=== PATIENT | female | born 1985 | race African-American/Black ===

== ENCOUNTER 2016-10-14 08:01 | Emergency (ER) | payer OTHER ==
[~2016-10-14 08:01] MED LIST: ACET50TA PO; DIBU1OIN TOP; DOCU10CA PO; IBUP80TA PO; VITAPRTA PO
[2016-10-14] MEDS ORDERED: ONDANSETRON 4MG/2ML VIAL (J2405) As Ordered ONE (08:32)
[2016-10-14] MEDS ORDERED: KETOROLAC 30 MG/ML VIAL (J1885) As Ordered ONE (08:32)
[2016-10-14 09:04] LABS: BASO % 0.4 % (0.0-1.0); EOS # 0.4 K/mm3 (0.0-0.50); EOS % 7.1 % (0.0-3.0); LARGE UNSTAINED CELL # 0.1 K/mm3 (0.0-0.4); LARGE UNSTAINED CELL % 2.4 % (0.0-4.0); LYMPH # 1.3 K/mm3 (1.5-4.5); LYMPH % 24.2 % (24.0-44.0); MONO # 0.2 K/mm3 (0.0-0.8); MONO % 4.4 % (0.0-5.0); NEUTROPHILS # 3.4 K/mm3 (1.8-7.7); NEUTROPHILS % 61.5 % (36.0-66.0); PLATELET COUNT, AUTOMATED 225 k/mm3 (150-450); RED CELL DISTRIBUTION WIDTH 12.4 % (11.5-14.5); WHITE BLOOD COUNT 5.5 K/mm3 (4.0-10.0)
--- NOTE | 2016-10-14 09:22 | REP ---
Complete abdomen ultrasound: There is no cholelithiasis, gallbladder wall thickening or pericholecystic fluid. There is a negative Del Castillo's sign to transducer pressure. There is no intrahepatic or extrahepatic biliary duct dilatation, the common duct measures 3.6 mm. The hepatic parenchyma is homogeneous. The visualized portion of the pancreatic head is unremarkable. The body and tail of the pancreas are obscured by bowel. The spleen is normal size measuring 9.9 x 3.4 by 10.3 cm. There are are no focal splenic masses. The spleen is homogeneous. The kidneys are normal size. The right kidney measures 10.1 x 4.5 x 4.3 cm. Left kidney measures 10.7 x 5.1 x 5.0 cm. No hydronephrosis, calculus, mass or cyst in the right and left kidneys. There is no abdominal aortic aneurysm. No ascites. Impression: Essentially negative total abdominal ultrasound. Signed by Denny Owen MD 10/14/2016 09:14 A
[2016-10-14 09:23] LABS: ALBUMIN 3.9 GM/DL (3.2-5.2); ALBUMIN/GLOBULIN RATIO 1.03 (1.00-1.93); ALKALINE PHOSPHATASE 67 U/L (45-117); ALT/SGPT 20 U/L (12-78); AMYLASE 91 U/L (25-115); ANION GAP 6 MEQ/L (8-16); AST/SGOT 14 U/L (15-37); BILIRUBIN,DIRECT 0.2 MG/DL (0.0-0.2); BILIRUBIN,TOTAL 0.9 MG/DL (0.2-1.0); BLOOD UREA NITROGEN 10 MG/DL (7-18); CALCIUM LEVEL 8.8 MG/DL (8.5-10.1); CARBON DIOXIDE LEVEL 26 MEQ/L (21-32); CHLORIDE LEVEL 107 MEQ/L (98-107); GLOMERULAR FILTRATION RATE > 60.0 (>60); GLUCOSE, FASTING 76 MG/DL (70-105); POTASSIUM SERUM 3.9 MEQ/L (3.5-5.1); SODIUM LEVEL 139 MEQ/L (136-145); TOTAL PROTEIN 7.7 GM/DL (6.4-8.2)
--- NOTE | 2016-10-14 10:07 | EDDOCDS ---
Nurse's Notes [facility] Name: Julita Ramesh Age: 31 yrs Sex: Female : 1985 Arrival Date: 10/14/2016 Time: 08:01 Bed I3 / M3 Private MD: Diagnosis: Nausea with vomiting, unspecified;Diarrhea, unspecified;Upper abdominal pain, unspecified-epigastric, LUQ Presentation: 10/14 08:11 Presenting complaint: Patient states: Abdominal cramping with N/V/D began last night. mlb1 Risk factors: the patient reports no vaginal bleeding. Adult Sepsis Screening: The patient does not have new or worsening altered mentation. Patient's respiratory rate is less than 22. Systolic blood pressure is greater than 100. Patient has a qSOFA score of 0- Negative Sepsis Screen. Suicide/Homicide risk assessment- the patient denies having any suicidal and/or homicidal ideations and does not present with any other emotional, behavioral or mental health complaints. Status: The patient is a dependent. Transition of care: patient was not received from another setting of care. 08:11 Acuity: LORA Level 3 mlb1 08:11 Method Of Arrival: Walkin/Carried/Asstd mlb1 Triage Assessment: 08:13 General: Appears in no apparent distress, Behavior is appropriate for age, cooperative. mlb1 Pain: Location: abdomen Pain currently is 6 out of 10 on a pain scale. Quality of pain is described as crampy. HIV screening NA for this visit Offered previously. GI: Reports diarrhea, nausea, vomiting. 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 Mirena 20 mcg/24 hr (5 years) intrauterine IUD 2. ProAir HFA 90 mcg/actuation inhalation HFAA 2 puffs every 4-6 hours prn - PMHx: Asthma; - PSHx: Bunion Surgery; - Social history: Smoking status: Patient states was never smoker of tobacco. No barriers to communication noted, The patient speaks fluent Swedish, Speaks appropriately for age. - Family history: Not pertinent. - : The pt / caregiver states he / she is not on anticoagulants. Home medication list is obtained from the patient. - Exposure Risk Screening:: None identified. Screenin:13 Screening information is obtained from the patient. Fall risk: No risks identified. ja5 Assistance ADL's: requires no assistance with activities of daily living. Abuse/DV Screen: The patient / caregiver reports he/she is: not in a situation that causes fear, pain or injury. Nutritional screening: On no prescribed diet. Advance Directives: Currently, there is no health care proxy. There is no active DNR order. There is no living will. There is no Power of Generator Technician. home support is adequate. Assessment: 09:11 General: Appears in no apparent distress, Behavior is appropriate for age, cooperative. ja5 Pain: Denies pain. Neurological: Level of Consciousness is awake, alert, Oriented to person, place. Cardiovascular: Capillary refill < 3 seconds Heart tones S1 S2 present. Respiratory: Airway is patent Respiratory effort is even, unlabored, Respiratory pattern is regular, symmetrical, Breath sounds are clear bilaterally. GI: Abdomen is flat, non- distended Bowel sounds present X 4 quads. Abd is soft X 4 quads Abd is tender to palpation in right lower quadrant. Derm: Skin is intact, is healthy with good turgor, Skin is pink, warm & dry. 09:37 Adult Sepsis Screening: The patient does not have new or worsening altered mentation. dsf Patient's respiratory rate is less than 22. Systolic blood pressure is greater than 100. Patient has a qSOFA score of 0- Negative Sepsis Screen. General: Appears in no apparent distress, Behavior is appropriate for age, cooperative. Pain: Location: abdomen Pain currently is 3 out of 10 on a pain scale. Quality of pain is described as crampy. Neurological: Level of Consciousness is awake, alert. Cardiovascular: Capillary refill < 3 seconds. Respiratory: Airway is patent Respiratory effort is even, unlabored, Respiratory pattern is regular, symmetrical. Derm: Skin is pink, warm & dry. 09:48 General: pt drinking maynor brandon without difficulty . dsf Vital Signs: 08:14 BP 137 / 93; Pulse 74; Resp 16; Temp 100.0(TE); Pulse Ox 100% on R/A; Weight 86.18 kg mlb1 (R); Height 5 ft. 8 in. (172.72 cm) (R); Pain 6/10; 09:37 Temp 98.6(O); Pain 2/10; dsf 10:05 BP 131 / 80; Pulse 70; Resp 20; Pulse Ox 100% on R/A; Pain 3/10; dsf 08:14 Body Mass Index 28.89 (86.18 kg, 172.72 cm) [facility] Vitals: 08:14 Log In Time: October 14, 2016 at 07:58. b1 ED Course: 08:02 Patient visited by Mallory Sheffield. mm15 08:02 Patient moved to Waiting mm15 08:11 Patient visited by Guero Todd, MIMI. mlb1 08:12 Triage Initiated mlb1 08:14 Patient visited by Guero Todd, MIMI. mlb1 08:15 Ivana Reese, MIMI is Primary Nurse. mlb1 08:15 Irena Richardson,MIMI is Primary Nurse. mlb1 08:15 Patient moved to I3 / M3 mlb1 08:16 [facility]. dt4 08:16 Hilario Bueno MD is Attending Physician. dt4 08:16 Patient visited by Eden Lazaro PA-C. dt4 08:39 Patient visited by Celeste Regan PCA. ct3 08:39 Urinalysis Sent. ct3 08:39 Urine Culture Sent. ct3 08:41 Patient moved to Ultrasound br3 08:44 Inserted saline lock: 20 gauge in left antecubital area. ja5 09:06 Patient moved to I3 / M3 br3 09:11 Patient visited by Irena Richardson RN. ja5 09:40 [facility] Payment Agreement was scanned into [employer] and attached to record. lg 09:41 Patient visited by Olivia Jeffries RN. dsf 09:48 Abd US complete Returned. EDMS 09:49 Patient visited by Olivia Jeffries RN. dsf 10:05 The patient / caregiver is instructed regarding the plan of care and ED course. dsf 10:05 Discontinued lock intact, bleeding controlled, pressure dressing applied, No dsf redness/swelling at site. No procedures done that require assistance. Administered Medications: 08:41 Drug: Ondansetron 4 mg [ondansetron HCl 2 mg/mL intravenous solution (2 mL)] Route: jc4 IVP; Site: right antecubital; 08:43 Drug: NS 0.9% 1000 ml [sodium chloride 0.9 % intravenous solution] Route: IV; Rate: jc4 bolus; Site: left antecubital; 10:06 Follow up: IV Status: Infusion discontinued; IV Intake: 950ml dsf 08:44 Drug: ketorolac 30 mg [ketorolac 30 mg/mL (1 mL) injection solution (1 mL)] Route: IVP; jc4 Site: left antecubital; Point of Care Testing: Urine : 08:39 hCG Reading: Negative; Control Reading: Positive; ct3 Ranges: Intake: 10:06 IV: 950.00ml; Total: 950.00ml. dsf Order Results: Lab Order: Amylase; SPEC'M 10/14/16 08:41 Test: AMYLASE; Value: 91; Range: 25-115; Units: U/L; Status: F Lab Order: Basic Metabolic Profile; SPEC'M 10/14/16 08:41 Test: GLUCOSE, FASTING; Value: 76; Range: 70-105; Units: MG/DL; Status: F Test: BLOOD UREA NITROGEN; Value: 10; Range: 7-18; Units: MG/DL; Status: F Test: CREATININE FOR GFR; Value: 0.90; Range: 0.55-1.02; Units: MG/DL; Status: F Test: GLOMERULAR FILTRATION RATE; Value: > 60.0; Range: >60; Status: F Test: SODIUM LEVEL; Value: 139; Range: 136-145; Units: MEQ/L; Status: F Test: POTASSIUM SERUM; Value: 3.9; Range: 3.5-5.1; Units: MEQ/L; Status: F Test: CHLORIDE LEVEL; Value: 107; Range: 98-107; Units: MEQ/L; Status: F Test: CARBON DIOXIDE LEVEL; Value: 26; Range: 21-32; Units: MEQ/L; Status: F Test: ANION GAP; Value: 6; Range: 8-16; Abnormal: Below low normal; Units: MEQ/L; Status: F Test: CALCIUM LEVEL; Value: 8.8; Range: 8.5-10.1; Units: MG/DL; Status: F Test Note: ; Units are mL/min/1.73 m2 Chronic Kidney Disease Staging per NKF: Stage I & II GFR >=60 Normal to Mildly Decreased Stage III GFR 30-59 Moderately Decreased Stage IV GFR 15-29 Severely Decreased Stage V GFR <15 Very Little GFR Left ESRD GFR <15 on [employer] Lab Order: CBC with Diff; SPEC'M 10/14/16 08:41 Test: WHITE BLOOD COUNT; Value: 5.5; Range: 4.0-10.0; Units: K/mm3; Status: F Test: RED BLOOD COUNT; Value: 4.91; Range: 4.00-5.40; Units: M/mm3; Status: F Test: HEMOGLOBIN; Value: 13.8; Range: 12.0-16.0; Units: g/dl; Status: F Test: HEMATOCRIT; Value: 41.8; Range: 36.0-47.0; Units: %; Status: F Test: MEAN CORPUSCULAR VOLUME; Value: 85.0; Range: 80.0-96.0; Units: fl; Status: F Test: MEAN CORPUSCULAR HEMOGLOBIN; Value: 28.0; Range: 27.0-33.0; Units: pg; Status: F Test: MEAN CORPUSCULAR HGB CONC; Value: 33.0; Range: 32.0-36.5; Units: g/dl; Status: F Test: RED CELL DISTRIBUTION WIDTH; Value: 12.4; Range: 11.5-14.5; Units: %; Status: F Test: PLATELET COUNT, AUTOMATED; Value: 225; Range: 150-450; Units: k/mm3; Status: F Test: NEUTROPHILS %; Value: 61.5; Range: 36.0-66.0; Units: %; Status: F Test: LYMPH %; Value: 24.2; Range: 24.0-44.0; Units: %; Status: F Test: MONO %; Value: 4.4; Range: 0.0-5.0; Units: %; Status: F Test: EOS %; Value: 7.1; Range: 0.0-3.0; Abnormal: Above high normal; Units: %; Status: F Test: BASO %; Value: 0.4; Range: 0.0-1.0; Units: %; Status: F Test: LARGE UNSTAINED CELL %; Value: 2.4; Range: 0.0-4.0; Units: %; Status: F Test: NEUTROPHILS #; Value: 3.4; Range: 1.8-7.7; Units: K/mm3; Status: F Test: LYMPH #; Value: 1.3; Range: 1.5-4.5; Abnormal: Below low normal; Units: K/mm3; Status: F Test: MONO #; Value: 0.2; Range: 0.0-0.8; Units: K/mm3; Status: F Test: EOS #; Value: 0.4; Range: 0.0-0.50; Units: K/mm3; Status: F Test: BASO #; Value: 0.0; Range: 0.0-0.2; Units: K/mm3; Status: F Test: LARGE UNSTAINED CELL #; Value: 0.1; Range: 0.0-0.4; Units: K/mm3; Status: F Lab Order: Lipase; [facility] 10/14/16 08:41 Test: LIPASE; Value: 210; Range: 73-393; Units: U/L; Status: F Lab Order: Liver Profile; [facility] 10/14/16 08:41 Test: AST/SGOT; Value: 14; Range: 15-37; Abnormal: Below low normal; Units: U/L; Status: F Test: ALT/SGPT; Value: 20; Range: 12-78; Units: U/L; Status: F Test: ALKALINE PHOSPHATASE; Value: 67; Range: 45-117; Units: U/L; Status: F Test: BILIRUBIN,TOTAL; Value: 0.9; Range: 0.2-1.0; Units: MG/DL; Status: F Test: BILIRUBIN,DIRECT; Value: 0.2; Range: 0.0-0.2; Units: MG/DL; Status: F Test: TOTAL PROTEIN; Value: 7.7; Range: 6.4-8.2; Units: GM/DL; Status: F Test: ALBUMIN; Value: 3.9; Range: 3.2-5.2; Units: GM/DL; Status: F Test: ALBUMIN/GLOBULIN RATIO; Value: 1.03; Range: 1.00-1.93; Status: F Lab Order: Urinalysis; [facility] 10/14/16 08:31 Test: APPEARANCE, URINE; Value: CLEAR; Range: CLEAR; Status: F Test: COLOR, URINE; Value: YELLOW; Range: YELLOW; Status: F Test: PH,URINE; Value: 5.0; Range: 5.0-9.0; Units: UNITS; Status: F Test: SPECIFIC GRAVITY URINE AUTO; Value: 1.014; Range: 1.002-1.035; Status: F Test: PROTEIN, URINE AUTO; Value: NEGATIVE; Range: NEGATIVE; Units: mg/dL; Status: F Test: GLUCOSE, URINE (UA) AUTO; Value: NEGATIVE; Range: NEGATIVE; Units: mg/dL; Status: F Test: KETONE, URINE AUTO; Value: NEGATIVE; Range: NEGATIVE; Units: mg/dL; Status: F Test: UROBILINOGEN, URINE AUTO; Value: 0.2; Range: 0.0-2.0; Units: mg/dL; Status: F Test: BILIRUBIN, URINE AUTO; Value: NEGATIVE; Range: NEGATIVE; Status: F Test: NITRITE, URINE AUTO; Value: NEGATIVE; Range: NEGATIVE; Status: F Test: LEUKOCYTE ESTERASE, URINE AUTO; Value: NEGATIVE; Range: NEGATIVE; Status: F Test: BLOOD, URINE BLOOD; Value: NEGATIVE; Range: NEGATIVE; Status: F Test: WBC, URINE AUTO; Value: 1; Range: 0-3; Units: /HPF; Status: F Test: RBC, URINE AUTO; Value: 1; Range: 0-3; Units: /HPF; Status: F Test: BACTERIA, URINE AUTO; Value: NEGATIVE; Range: NEGATIVE; Status: F Test: SQUAMOUS EPITHELIAL CELL UR AU; Value: 1; Range: 0-6; Units: /HPF; Status: F Test: HYALINE CAST, URINE AUTO; Value: 0; Range: 0-1; Units: /LPF; Status: F Radiology Order: Abd US complete Test: Abd US complete REASON FOR EXAMINATION: luq pain, n/v, ?pancreas vs GB; Complete abdomen ultrasound:; ; There is no cholelithiasis, gallbladder wall thickening or pericholecystic fluid.; There is a negative Del Castillo's sign to transducer pressure.; ; There is no intrahepatic or extrahepatic biliary duct dilatation, the common duct; measures 3.6 mm.; ; The hepatic parenchyma is homogeneous.; ; The visualized portion of the pancreatic head is unremarkable. The body and tail; of the pancreas are obscured by bowel.; ; The spleen is normal size measuring 9.9 x 3.4 by 10.3 cm. There are are no focal; splenic masses. The spleen is homogeneous.; ; The kidneys are normal size.; The right kidney measures 10.1 x 4.5 x 4.3 cm.; Left kidney measures 10.7 x 5.1 x 5.0 cm.; ; No hydronephrosis, calculus, mass or cyst in the right and left kidneys.; ; There is no abdominal aortic aneurysm.; ; No ascites.; ; Impression:; ; Essentially negative total abdominal ultrasound.; ; ; Signed by; Denny Owen MD 10/14/2016 09:14 A; Outcome: 09:58 Discharge ordered by Provider. dt4 10:06 Discharge Assessment: Patient awake, alert and oriented x 3. No cognitive and/or dsf functional deficits noted. Patient verbalized understanding of disposition instructions. patient administered narcotics - no. The following High Risk Discharge criteria are identified: None. Discharged to home ambulatory, with significant other. Condition: stable. Discharge instructions given to patient, Instructed on discharge instructions, follow up and referral plans. medication usage, diet, Demonstrated understanding of instructions, medications, Pt was receptive of discharge instructions/ teaching. Prescriptions given X 1, Work note provided to patient. No special radiology studies were completed. Property sent home with patient. 10:06 Patient left the ED. dsf Signatures: Dispatcher [employer] EDMS Zaire Finn, Suman Reg lg Guero Todd, RN RN mlb1 Natasha Parks br3 Ivana Reese RN RN jc4 Celeste Regan, GUEST REQUEST RUNNER GUEST REQUEST RUNNER ct3 Olivia Jeffries,MIMI RN dsf Mallory Sheffield mm15 Eden Lazaro PA-C PAEliseo dt4 Irena Richardson,RN RN ja5 MTDD
--- NOTE | 2016-10-14 10:07 | EDDOCDS ---
Physician Documentation [facility] Name: Julita Ramesh Age: 31 yrs Sex: Female : 1985 Arrival Date: 10/14/2016 Time: 08:01 Bed I3 / M3 Private MD: Disposition: 10/14/16 09:58 Discharged to Home/Self Care. Impression: Nausea with vomiting, unspecified, Diarrhea, unspecified, Upper abdominal pain, unspecified - epigastric, LUQ. - Condition is Stable. - Discharge Instructions: Diarrhea, Nausea and Vomiting, Abdominal Pain, Women. - Prescriptions for ZOFRAN ODT 4 mg Oral - dissolve 1 tablet by ORAL route 3-4 times daily As needed do not chew, do not swallow whole; 20 tablet. - Medication Reconciliation, Local Pharmacy Hours form. - Follow up: Emergency Department; When: As needed; Reason: Worsening of conditions. Follow up: Private Physician; When: 2 - 3 days; Reason: Wound/Symptom Recheck, Recheck today's complaints, Continuance of care. - Problem is new. - Symptoms have improved. Historical: - Allergies: no known allergies; - Home Meds: 1. Mirena 20 mcg/24 hr (5 years) intrauterine IUD 2. ProAir HFA 90 mcg/actuation inhalation HFAA 2 puffs every 4-6 hours prn - PMHx: Asthma; - PSHx: Bunion Surgery; - Social history: Smoking status: Patient states was never smoker of tobacco. No barriers to communication noted, The patient speaks fluent Guinean, Speaks appropriately for age. - Family history: Not pertinent. - : The pt / caregiver states he / she is not on anticoagulants. Home medication list is obtained from the patient. - Exposure Risk Screening:: None identified. 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 8 in. (172.72 cm) (R); Pain 6/10; 09:37 Temp 98.6(O); Pain 2/10; dsf 10:05 BP 131 / 80; Pulse 70; Resp 20; Pulse Ox 100% on R/A; Pain 3/10; dsf 08:14 Body Mass Index 28.89 (86.18 kg, 172.72 cm) mlb1 MDM: 08:23 NS 0.9% 1000 ml IV at bolus once ordered. dt4 08:23 Ondansetron 4 mg IVP once ordered. dt4 08:23 ketorolac 30 mg IVP once ordered. dt4 08:23 IV Saline Lock ordered. dt4 08:23 UCG by Nursing ordered. dt4 08:24 Amylase Ordered. EDMS 08:24 Basic Metabolic Profile Ordered. EDMS 08:24 CBC with Diff Ordered. EDMS 08:24 Lipase Ordered. EDMS 08:24 Liver Profile Ordered. EDMS 08:24 Urinalysis Ordered. EDMS 08:24 Urine Culture Ordered. EDMS 08:25 Abd US complete Ordered. EDMS 08:29 Financial registration complete. lg 09:33 Fluid Challenge ordered. dt4 09:40 [facility] Payment Agreement was scanned into [employer] and attached to record. Point of Care Testing: Urine : 08:39 hCG Reading: Negative; Control Reading: Positive; ct3 Ranges: Administered Medications: 08:41 Drug: Ondansetron 4 mg [ondansetron HCl 2 mg/mL intravenous solution (2 mL)] Route: jc4 IVP; Site: right antecubital; 08:43 Drug: NS 0.9% 1000 ml [sodium chloride 0.9 % intravenous solution] Route: IV; Rate: jc4 bolus; Site: left antecubital; 10:06 Follow up: IV Status: Infusion discontinued; IV Intake: 950ml [facility] 08:44 Drug: ketorolac 30 mg [ketorolac 30 mg/mL (1 mL) injection solution (1 mL)] Route: IVP; jc4 Site: left antecubital; Signatures: [facility] Zaire Finn, Suman Reg lg Guero Todd RN RN mlb1 Olivia Jeffries RN RN dsf Eden Lazaro, PAEliseo PAEliseo dt4 Ivana Reese RN jc4 The chart was reviewed and I authenticate all verbal orders and agree with the evaluation and treatment provided.Attachments: 09:40 [facility] [place] lg MTDD
--- NOTE | 2016-10-16 11:08 | EDDOCDS ---
Physician Documentation [facility] Name: Julita Ramesh Age: 31 yrs Sex: Female : 1985 Arrival Date: 10/14/2016 Time: 08:01 Bed I3 / M3 Private MD: Disposition: 10/14/16 09:58 Discharged to Home/Self Care. Impression: Nausea with vomiting, unspecified, Diarrhea, unspecified, Upper abdominal pain, unspecified - epigastric, LUQ. - Condition is Stable. - Discharge Instructions: Diarrhea, Nausea and Vomiting, Abdominal Pain, Women. - Prescriptions for ZOFRAN ODT 4 mg Oral - dissolve 1 tablet by ORAL route 3-4 times daily As needed do not chew, do not swallow whole; 20 tablet. - Medication Reconciliation, Local Pharmacy Hours form. - Follow up: Emergency Department; When: As needed; Reason: Worsening of conditions. Follow up: Private Physician; When: 2 - 3 days; Reason: Wound/Symptom Recheck, Recheck today's complaints, Continuance of care. - Problem is new. - Symptoms have improved. Historical: - Allergies: no known allergies; - Home Meds: 1. Mirena 20 mcg/24 hr (5 years) intrauterine IUD 2. ProAir HFA 90 mcg/actuation inhalation HFAA 2 puffs every 4-6 hours prn - PMHx: Asthma; - PSHx: Bunion Surgery; - Social history: Smoking status: Patient states was never smoker of tobacco. No barriers to communication noted, The patient speaks fluent Czech, Speaks appropriately for age. - Family history: Not pertinent. - : The pt / caregiver states he / she is not on anticoagulants. Home medication list is obtained from the patient. - Exposure Risk Screening:: None identified. 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 8 in. (172.72 cm) (R); Pain 6/10; 09:37 Temp 98.6(O); Pain 2/10; dsf 10:05 BP 131 / 80; Pulse 70; Resp 20; Pulse Ox 100% on R/A; Pain 3/10; dsf 08:14 Body Mass Index 28.89 (86.18 kg, 172.72 cm) mlb1 MDM: 08:23 NS 0.9% 1000 ml IV at bolus once ordered. dt4 08:23 Ondansetron 4 mg IVP once ordered. dt4 08:23 ketorolac 30 mg IVP once ordered. dt4 08:23 IV Saline Lock ordered. dt4 08:23 UCG by Nursing ordered. dt4 08:24 Amylase Ordered. EDMS 08:24 Basic Metabolic Profile Ordered. EDMS 08:24 CBC with Diff Ordered. EDMS 08:24 Lipase Ordered. EDMS 08:24 Liver Profile Ordered. EDMS 08:24 Urinalysis Ordered. EDMS 08:24 Urine Culture Ordered. EDMS 08:25 Abd US complete Ordered. EDMS 08:29 Financial registration complete. lg 09:33 Fluid Challenge ordered. dt4 09:40 [facility] [place] was scanned into [employer] and attached to record. lg 02 10:12 T-Sheet-- Draft Copy was scanned into [employer] and attached to record. 10:12 Radiology Report was scanned into [employer] and attached to record. Point of Care Testing: Urine : 10/14 08:39 hCG Reading: Negative; Control Reading: Positive; ct3 Ranges: Administered Medications: 08:41 Drug: Ondansetron 4 mg [ondansetron HCl 2 mg/mL intravenous solution (2 mL)] Route: jc4 IVP; Site: right antecubital; 08:43 Drug: NS 0.9% 1000 ml [sodium chloride 0.9 % intravenous solution] Route: IV; Rate: jc4 bolus; Site: left antecubital; 10:06 Follow up: IV Status: Infusion discontinued; IV Intake: 950ml dsf 08:44 Drug: ketorolac 30 mg [ketorolac 30 mg/mL (1 mL) injection solution (1 mL)] Route: IVP; jc4 Site: left antecubital; Signatures: Dispatcher [employer] EDMS Niki Parker, Reg Reg gb Zaire Finn, Reg Reg lg Guero Todd RN RN mlb1 Olivia Jeffries RN RN dsf Eden Lazaro PA-C PAEliseo dt4 Ivana Reese RN jc4 The chart was reviewed and I authenticate all verbal orders and agree with the evaluation and treatment provided.Attachments: 09:40 [facility] Payment Agreement lg 10/15 10:12 T-Sheet-- Draft Copy gb Chart Complete MTDD
--- NOTE | 2016-10-16 11:08 | EDDOCDS ---
Nurse's Notes [facility] Name: Julita Ramesh Age: 31 yrs Sex: Female : 1985 Arrival Date: 10/14/2016 Time: 08:01 Bed I3 / M3 Private MD: Diagnosis: Nausea with vomiting, unspecified;Diarrhea, unspecified;Upper abdominal pain, unspecified-epigastric, LUQ Presentation: 10/14 08:11 Presenting complaint: Patient states: Abdominal cramping with N/V/D began last night. mlb1 Risk factors: the patient reports no vaginal bleeding. Adult Sepsis Screening: The patient does not have new or worsening altered mentation. Patient's respiratory rate is less than 22. Systolic blood pressure is greater than 100. Patient has a qSOFA score of 0- Negative Sepsis Screen. Suicide/Homicide risk assessment- the patient denies having any suicidal and/or homicidal ideations and does not present with any other emotional, behavioral or mental health complaints. Status: The patient is a dependent. Transition of care: patient was not received from another setting of care. 08:11 Acuity: LORA Level 3 mlb1 08:11 Method Of Arrival: Walkin/Carried/Asstd mlb1 Triage Assessment: 08:13 General: Appears in no apparent distress, Behavior is appropriate for age, cooperative. mlb1 Pain: Location: abdomen Pain currently is 6 out of 10 on a pain scale. Quality of pain is described as crampy. HIV screening NA for this visit Offered previously. GI: Reports diarrhea, nausea, vomiting. ONCOLOGY PHARMACIST: 08:14 LMP N/A - control method mlb1 Historical: - Allergies: no known allergies; - Home Meds: 1. Mirena 20 mcg/24 hr (5 years) intrauterine IUD 2. ProAir HFA 90 mcg/actuation inhalation HFAA 2 puffs every 4-6 hours prn - PMHx: Asthma; - PSHx: Bunion Surgery; - Social history: Smoking status: Patient states was never smoker of tobacco. No barriers to communication noted, The patient speaks fluent Danish, Speaks appropriately for age. - Family history: Not pertinent. - : The pt / caregiver states he / she is not on anticoagulants. Home medication list is obtained from the patient. - Exposure Risk Screening:: None identified. Screenin:13 Screening information is obtained from the patient. Fall risk: No risks identified. ja5 Assistance ADL's: requires no assistance with activities of daily living. Abuse/DV Screen: The patient / caregiver reports he/she is: not in a situation that causes fear, pain or injury. Nutritional screening: On no prescribed diet. Advance Directives: Currently, there is no health care proxy. There is no active DNR order. There is no living will. 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 home support is adequate. Assessment: 09:11 General: Appears in no apparent distress, Behavior is appropriate for age, cooperative. ja5 Pain: Denies pain. Neurological: Level of Consciousness is awake, alert, Oriented to person, place. Cardiovascular: Capillary refill < 3 seconds Heart tones S1 S2 present. Respiratory: Airway is patent Respiratory effort is even, unlabored, Respiratory pattern is regular, symmetrical, Breath sounds are clear bilaterally. GI: Abdomen is flat, non- distended Bowel sounds present X 4 quads. Abd is soft X 4 quads Abd is tender to palpation in right lower quadrant. Derm: Skin is intact, is healthy with good turgor, Skin is pink, warm & dry. 09:37 Adult Sepsis Screening: The patient does not have new or worsening altered mentation. dsf Patient's respiratory rate is less than 22. Systolic blood pressure is greater than 100. Patient has a qSOFA score of 0- Negative Sepsis Screen. General: Appears in no apparent distress, Behavior is appropriate for age, cooperative. Pain: Location: abdomen Pain currently is 3 out of 10 on a pain scale. Quality of pain is described as crampy. Neurological: Level of Consciousness is awake, alert. Cardiovascular: Capillary refill < 3 seconds. Respiratory: Airway is patent Respiratory effort is even, unlabored, Respiratory pattern is regular, symmetrical. Derm: Skin is pink, warm & dry. 09:48 General: pt drinking maynor brandon without difficulty . dsf Vital Signs: 08:14 BP 137 / 93; Pulse 74; Resp 16; Temp 100.0(TE); Pulse Ox 100% on R/A; Weight 86.18 kg mlb1 (R); Height 5 ft. 8 in. (172.72 cm) (R); Pain 6/10; 09:37 Temp 98.6(O); Pain 2/10; dsf 10:05 BP 131 / 80; Pulse 70; Resp 20; Pulse Ox 100% on R/A; Pain 3/10; dsf 08:14 Body Mass Index 28.89 (86.18 kg, 172.72 cm) [facility] Vitals: 08:14 Log In Time: October 14, 2016 at 07:58. b1 ED Course: 08:02 Patient visited by Mallory Sheffield. mm15 08:02 Patient moved to Waiting mm15 08:11 Patient visited by Guero Todd, MIMI. mlb1 08:12 Triage Initiated mlb1 08:14 Patient visited by Guero Todd, RN. mlb1 08:15 Ivana Reese, MIMI is Primary Nurse. mlb1 08:15 Irena Richardson,MIMI is Primary Nurse. mlb1 08:15 Patient moved to I3 / M3 mlb1 08:16 Eden Lazaro PA-C is PHCP. dt4 08:16 Hilario Bueno MD is Attending Physician. dt4 08:16 Patient visited by Eden Lazaro PA-C. dt4 08:39 Patient visited by Celeste Regan, LUIS ALFREDO. ct3 08:39 Urinalysis Sent. ct3 08:39 Urine Culture Sent. ct3 08:41 Patient moved to Ultrasound br3 08:44 Inserted saline lock: 20 gauge in left antecubital area. ja5 09:06 Patient moved to I3 / M3 br3 09:11 Patient visited by Irena Richardson RN. ja5 09:40 [facility] Payment Agreement was scanned into IPL[employer] and attached to record. lg 09:41 Patient visited by Olivia Jeffries RN. dsf 09:48 Abd US complete Returned. EDMS 09:49 Patient visited by Olivia Jeffries RN. dsf 10:05 The patient / caregiver is instructed regarding the plan of care and ED course. dsf 10:05 Discontinued lock intact, bleeding controlled, pressure dressing applied, No dsf redness/swelling at site. No procedures done that require assistance. 10/15 10:12 T-Sheet-- Draft Copy was scanned into IPLocks and attached to record. gb 10:12 Radiology Report was scanned into IPLocks and attached to record. gb Administered Medications: 10/14 08:41 Drug: Ondansetron 4 mg [ondansetron HCl 2 mg/mL intravenous solution (2 mL)] Route: jc4 IVP; Site: right antecubital; 08:43 Drug: NS 0.9% 1000 ml [sodium chloride 0.9 % intravenous solution] Route: IV; Rate: jc4 bolus; Site: left antecubital; 10:06 Follow up: IV Status: Infusion discontinued; IV Intake: 950ml dsf 08:44 Drug: ketorolac 30 mg [ketorolac 30 mg/mL (1 mL) injection solution (1 mL)] Route: IVP; jc4 Site: left antecubital; Point of Care Testing: Urine : 08:39 hCG Reading: Negative; Control Reading: Positive; ct3 Ranges: Intake: 10:06 IV: 950.00ml; Total: 950.00ml. dsf Order Results: Lab Order: Amylase; SPEC'M 10/14/16 08:41 Test: AMYLASE; Value: 91; Range: 25-115; Units: U/L; Status: F Lab Order: Basic Metabolic Profile; SPEC' 10/14/16 08:41 Test: GLUCOSE, FASTING; Value: 76; Range: 70-105; Units: MG/DL; Status: F Test: BLOOD UREA NITROGEN; Value: 10; Range: 7-18; Units: MG/DL; Status: F Test: CREATININE FOR GFR; Value: 0.90; Range: 0.55-1.02; Units: MG/DL; Status: F Test: GLOMERULAR FILTRATION RATE; Value: > 60.0; Range: >60; Status: F Test: SODIUM LEVEL; Value: 139; Range: 136-145; Units: MEQ/L; Status: F Test: POTASSIUM SERUM; Value: 3.9; Range: 3.5-5.1; Units: MEQ/L; Status: F Test: CHLORIDE LEVEL; Value: 107; Range: 98-107; Units: MEQ/L; Status: F Test: CARBON DIOXIDE LEVEL; Value: 26; Range: 21-32; Units: MEQ/L; Status: F Test: ANION GAP; Value: 6; Range: 8-16; Abnormal: Below low normal; Units: MEQ/L; Status: F Test: CALCIUM LEVEL; Value: 8.8; Range: 8.5-10.1; Units: MG/DL; Status: F Test Note: ; Units are mL/min/1.73 m2 Chronic Kidney Disease Staging per NKF: Stage I & II GFR >=60 Normal to Mildly Decreased Stage III GFR 30-59 Moderately Decreased Stage IV GFR 15-29 Severely Decreased Stage V GFR <15 Very Little GFR Left ESRD GFR <15 on SALES PERFORMANCE ANALYST Lab Order: CBC with Diff; HAILEY'Jose 10/14/16 08:41 Test: WHITE BLOOD COUNT; Value: 5.5; Range: 4.0-10.0; Units: K/mm3; Status: F Test: RED BLOOD COUNT; Value: 4.91; Range: 4.00-5.40; Units: M/mm3; Status: F Test: HEMOGLOBIN; Value: 13.8; Range: 12.0-16.0; Units: g/dl; Status: F Test: HEMATOCRIT; Value: 41.8; Range: 36.0-47.0; Units: %; Status: F Test: MEAN CORPUSCULAR VOLUME; Value: 85.0; Range: 80.0-96.0; Units: fl; Status: F Test: MEAN CORPUSCULAR HEMOGLOBIN; Value: 28.0; Range: 27.0-33.0; Units: pg; Status: F Test: MEAN CORPUSCULAR HGB CONC; Value: 33.0; Range: 32.0-36.5; Units: g/dl; Status: F Test: RED CELL DISTRIBUTION WIDTH; Value: 12.4; Range: 11.5-14.5; Units: %; Status: F Test: PLATELET COUNT, AUTOMATED; Value: 225; Range: 150-450; Units: k/mm3; Status: F Test: NEUTROPHILS %; Value: 61.5; Range: 36.0-66.0; Units: %; Status: F Test: LYMPH %; Value: 24.2; Range: 24.0-44.0; Units: %; Status: F Test: MONO %; Value: 4.4; Range: 0.0-5.0; Units: %; Status: F Test: EOS %; Value: 7.1; Range: 0.0-3.0; Abnormal: Above high normal; Units: %; Status: F Test: BASO %; Value: 0.4; Range: 0.0-1.0; Units: %; Status: F Test: LARGE UNSTAINED CELL %; Value: 2.4; Range: 0.0-4.0; Units: %; Status: F Test: NEUTROPHILS #; Value: 3.4; Range: 1.8-7.7; Units: K/mm3; Status: F Test: LYMPH #; Value: 1.3; Range: 1.5-4.5; Abnormal: Below low normal; Units: K/mm3; Status: F Test: MONO #; Value: 0.2; Range: 0.0-0.8; Units: K/mm3; Status: F Test: EOS #; Value: 0.4; Range: 0.0-0.50; Units: K/mm3; Status: F Test: BASO #; Value: 0.0; Range: 0.0-0.2; Units: K/mm3; Status: F Test: LARGE UNSTAINED CELL #; Value: 0.1; Range: 0.0-0.4; Units: K/mm3; Status: F Lab Order: Lipase; SPEC' 10/14/16 08:41 Test: LIPASE; Value: 210; Range: 73-393; Units: U/L; Status: F Lab Order: Liver Profile; SPEC' 10/14/16 08:41 Test: AST/SGOT; Value: 14; Range: 15-37; Abnormal: Below low normal; Units: U/L; Status: F Test: ALT/SGPT; Value: 20; Range: 12-78; Units: U/L; Status: F Test: ALKALINE PHOSPHATASE; Value: 67; Range: 45-117; Units: U/L; Status: F Test: BILIRUBIN,TOTAL; Value: 0.9; Range: 0.2-1.0; Units: MG/DL; Status: F Test: BILIRUBIN,DIRECT; Value: 0.2; Range: 0.0-0.2; Units: MG/DL; Status: F Test: TOTAL PROTEIN; Value: 7.7; Range: 6.4-8.2; Units: GM/DL; Status: F Test: ALBUMIN; Value: 3.9; Range: 3.2-5.2; Units: GM/DL; Status: F Test: ALBUMIN/GLOBULIN RATIO; Value: 1.03; Range: 1.00-1.93; Status: F Lab Order: Urinalysis; SPEC'M 10/14/16 08:31 Test: APPEARANCE, URINE; Value: CLEAR; Range: CLEAR; Status: F Test: COLOR, URINE; Value: YELLOW; Range: YELLOW; Status: F Test: PH,URINE; Value: 5.0; Range: 5.0-9.0; Units: UNITS; Status: F Test: SPECIFIC GRAVITY URINE AUTO; Value: 1.014; Range: 1.002-1.035; Status: F Test: PROTEIN, URINE AUTO; Value: NEGATIVE; Range: NEGATIVE; Units: mg/dL; Status: F Test: GLUCOSE, URINE (UA) AUTO; Value: NEGATIVE; Range: NEGATIVE; Units: mg/dL; Status: F Test: KETONE, URINE AUTO; Value: NEGATIVE; Range: NEGATIVE; Units: mg/dL; Status: F Test: UROBILINOGEN, URINE AUTO; Value: 0.2; Range: 0.0-2.0; Units: mg/dL; Status: F Test: BILIRUBIN, URINE AUTO; Value: NEGATIVE; Range: NEGATIVE; Status: F Test: NITRITE, URINE AUTO; Value: NEGATIVE; Range: NEGATIVE; Status: F Test: LEUKOCYTE ESTERASE, URINE AUTO; Value: NEGATIVE; Range: NEGATIVE; Status: F Test: BLOOD, URINE BLOOD; Value: NEGATIVE; Range: NEGATIVE; Status: F Test: WBC, URINE AUTO; Value: 1; Range: 0-3; Units: /HPF; Status: F Test: RBC, URINE AUTO; Value: 1; Range: 0-3; Units: /HPF; Status: F Test: BACTERIA, URINE AUTO; Value: NEGATIVE; Range: NEGATIVE; Status: F Test: SQUAMOUS EPITHELIAL CELL UR AU; Value: 1; Range: 0-6; Units: /HPF; Status: F Test: HYALINE CAST, URINE AUTO; Value: 0; Range: 0-1; Units: /LPF; Status: F Lab Order: Urine Culture; SPEC'M 10/14/16 08:31 Test: URINE CULTURE; Value: <EXTERNAL COMMENT eCWMed> FULL REPORT IN LAB NOTES (eCW and Medent).; Status: F Test: URINE CULTURE; Value: URINE CULTURE RESULT NO GROWTH CLINICAL SIGNIFICANCE 1 ORGANISM; Status: F Radiology Order: Abd US complete Test: Abd US complete REASON FOR EXAMINATION: luq pain, n/v, ?pancreas vs GB; Complete abdomen ultrasound:; ; There is no cholelithiasis, gallbladder wall thickening or pericholecystic fluid.; There is a negative Del Castillo's sign to transducer pressure.; ; There is no intrahepatic or extrahepatic biliary duct dilatation, the common duct; measures 3.6 mm.; ; The hepatic parenchyma is homogeneous.; ; The visualized portion of the pancreatic head is unremarkable. The body and tail; of the pancreas are obscured by bowel.; ; The spleen is normal size measuring 9.9 x 3.4 by 10.3 cm. There are are no focal; splenic masses. The spleen is homogeneous.; ; The kidneys are normal size.; The right kidney measures 10.1 x 4.5 x 4.3 cm.; Left kidney measures 10.7 x 5.1 x 5.0 cm.; ; No hydronephrosis, calculus, mass or cyst in the right and left kidneys.; ; There is no abdominal aortic aneurysm.; ; No ascites.; ; Impression:; ; Essentially negative total abdominal ultrasound.; ; ; Signed by; Denny Owen MD 10/14/2016 09:14 A; Outcome: 09:58 Discharge ordered by Provider. dt4 10:06 Discharge Assessment: Patient awake, alert and oriented x 3. No cognitive and/or dsf functional deficits noted. Patient verbalized understanding of disposition instructions. patient administered narcotics - no. The following High Risk Discharge criteria are identified: None. Discharged to home ambulatory, with significant other. Condition: stable. Discharge instructions given to patient, Instructed on discharge instructions, follow up and referral plans. medication usage, diet, Demonstrated understanding of instructions, medications, Pt was receptive of discharge instructions/ teaching. Prescriptions given X 1, Work note provided to patient. No special radiology studies were completed. Property sent home with patient. 10:06 Patient left the ED. dsf Signatures: Dispatcher [employer] EDMS Niki Parker, Reg Reg gb Zaire Finn, Reg Reg lg Perez, Guero De Oliveira RN RN mlb1 Natasha Parks br3 Ivana Reese RN RN jc4 Celeste Regan, STUDIO CONTROL OPERATOR STUDIO CONTROL OPERATOR ct3 Olivia JeffriesRN RN dsf Mallory Sheffield mm15 Eden Lazaro, ISIDRA PALarryC dt4 Irena Richardson,RN RN ja5 Chart Complete MTDD
--- NOTE | 2016-10-16 11:08 | EDDOCDS ---
Physician Documentation [facility] Name: Julita Ramesh Age: 31 yrs Sex: Female : 1985 Arrival Date: 10/14/2016 Time: 08:01 Bed I3 / M3 Private MD: Disposition: 10/14/16 09:58 Discharged to Home/Self Care. Impression: Nausea with vomiting, unspecified, Diarrhea, unspecified, Upper abdominal pain, unspecified - epigastric, LUQ. - Condition is Stable. - Discharge Instructions: Diarrhea, Nausea and Vomiting, Abdominal Pain, Women. - Prescriptions for ZOFRAN ODT 4 mg Oral - dissolve 1 tablet by ORAL route 3-4 times daily As needed do not chew, do not swallow whole; 20 tablet. - Medication Reconciliation, Local Pharmacy Hours form. - Follow up: Emergency Department; When: As needed; Reason: Worsening of conditions. Follow up: Private Physician; When: 2 - 3 days; Reason: Wound/Symptom Recheck, Recheck today's complaints, Continuance of care. - Problem is new. - Symptoms have improved. Historical: - Allergies: no known allergies; - Home Meds: 1. Mirena 20 mcg/24 hr (5 years) intrauterine IUD 2. ProAir HFA 90 mcg/actuation inhalation HFAA 2 puffs every 4-6 hours prn - PMHx: Asthma; - PSHx: Bunion Surgery; - Social history: Smoking status: Patient states was never smoker of tobacco. No barriers to communication noted, The patient speaks fluent Barbadian, Speaks appropriately for age. - Family history: Not pertinent. - : The pt / caregiver states he / she is not on anticoagulants. Home medication list is obtained from the patient. - Exposure Risk Screening:: None identified. 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 8 in. (172.72 cm) (R); Pain 6/10; 09:37 Temp 98.6(O); Pain 2/10; dsf 10:05 BP 131 / 80; Pulse 70; Resp 20; Pulse Ox 100% on R/A; Pain 3/10; dsf 08:14 Body Mass Index 28.89 (86.18 kg, 172.72 cm) mlb1 MDM: 08:23 NS 0.9% 1000 ml IV at bolus once ordered. dt4 08:23 Ondansetron 4 mg IVP once ordered. dt4 08:23 ketorolac 30 mg IVP once ordered. dt4 08:23 IV Saline Lock ordered. dt4 08:23 UCG by Nursing ordered. dt4 08:24 Amylase Ordered. EDMS 08:24 Basic Metabolic Profile Ordered. EDMS 08:24 CBC with Diff Ordered. EDMS 08:24 Lipase Ordered. EDMS 08:24 Liver Profile Ordered. EDMS 08:24 Urinalysis Ordered. EDMS 08:24 Urine Culture Ordered. EDMS 08:25 Abd US complete Ordered. EDMS 08:29 Financial registration complete. lg 09:33 Fluid Challenge ordered. dt4 09:40 [facility] [place] Agreement was scanned into BCN[employer] and attached to record. lg 02 10:12 T-Sheet-- Draft Copy was scanned into BCNX and attached to record. 10:12 Radiology Report was scanned into BCNX and attached to record. Point of Care Testing: Urine : 10/14 08:39 hCG Reading: Negative; Control Reading: Positive; ct3 Ranges: Administered Medications: 08:41 Drug: Ondansetron 4 mg [ondansetron HCl 2 mg/mL intravenous solution (2 mL)] Route: jc4 IVP; Site: right antecubital; 08:43 Drug: NS 0.9% 1000 ml [sodium chloride 0.9 % intravenous solution] Route: IV; Rate: jc4 bolus; Site: left antecubital; 10:06 Follow up: IV Status: Infusion discontinued; IV Intake: 950ml dsf 08:44 Drug: ketorolac 30 mg [ketorolac 30 mg/mL (1 mL) injection solution (1 mL)] Route: IVP; jc4 Site: left antecubital; Signatures: Dispatcher [employer] EDMS Niki Parker, Reg Reg gb Zaire Finn, Reg Reg lg Guero Todd RN RN mlb1 Olivia Jeffries RN RN dsf Eden Lazaro PA-C PAEliseo dt4 Ivana Reese RN jc4 The chart was reviewed and I authenticate all verbal orders and agree with the evaluation and treatment provided.Attachments: 09:40 [facility] Payment Agreement lg 10/15 10:12 T-Sheet-- Draft Copy gb Chart Complete MTDD
== END 2016-10-14 10:06 | disposition home or self-care (01) ==
LOC: M ED 08:01
DX: R10.12 Left upper quadrant pain (principal); R10.13 Epigastric pain; R11.2 Nausea with vomiting, unspecified; R19.7 Diarrhea, unspecified; J45.909 Unspecified asthma, uncomplicated
CPT/HCPCS: 36415; 76700; 80048; 80076; 81001; 81025; 82150; 83690; 85025; 87086; 99284; J1885; J2405

== ENCOUNTER → 2016-12-07 | Outpatient (REF) | payer OTHER ==
[~2016-12-07] MED LIST changes: +ALBU17IN INH; +CIPR500T89 PO; +NAPR500T2 PO; +NORCOTAB PO
== END ==
LOC: M LAB REF 16:07
PROVIDERS: ATTEND Physician Assistant
DX: N39.0 Urinary tract infection, site not specified (principal)

== ENCOUNTER → 2016-12-09 | Outpatient (CLI) | payer OTHER ==
--- NOTE | 2016-12-09 09:54 | REP ---
CT ABDOMEN AND PELVIS WITHOUT CONTRAST: CT abdomen and pelvis performed without oral or IV contrast, with sagittal, coronal reconstruction images performed. Visualized lung bases appear clear. The liver, spleen, adrenals, pancreas and kidneys are grossly unremarkable. No renal, ureteral or bladder calculus is seen and there is no evidence of hydroureteronephrosis. There is no evidence of abdominal aortic aneurysm. No bowel thickening is seen. I see no free air or free fluid. There is a small umbilical hernia containing fat. The appendix is normal. IUD is seen in the uterus. There appears to be a left ovarian cyst with a maximum diameter of 5.7 cm. No other gross pelvic abnormality is seen. IMPRESSION: No evidence of renal or ureteral calculi and no hydroureteronephrosis. Small umbilical hernia containing fat. Cystic structure, left pelvis most consistent with a left ovarian cyst measuring 5.7 cm in diameter. Signed by Denny Rajan MD 12/09/2016 12:15 P
== END ==
LOC: M RAD 09:03
PROVIDERS: ATTEND Nurse Practitioner Family
DX: R10.9 Unspecified abdominal pain (principal)

== ENCOUNTER 2016-12-10 11:25 | Emergency (ER) | payer OTHER ==
[~2016-12-10] VITALS: Ht 175.3 cm; Wt 83.9 kg
[~2016-12-10 11:25] MED LIST changes: -ALBU17IN INH; -CIPR500T89 PO; -NAPR500T2 PO; -NORCOTAB PO
[2016-12-10] MEDS ORDERED: CIPR500T89 PO (11:36)
[2016-12-10] MEDS ORDERED: NAPR500T2 PO (11:36)
[2016-12-10] MEDS ORDERED: ALBU17IN INH (11:39)
[2016-12-10] MEDS ORDERED: KETOROLAC 30 MG/ML VIAL (J1885) IV ONE (12:15)
[2016-12-10] MEDS ORDERED: ONDANSETRON 4MG/2ML VIAL (J2405) IV ONE (12:15)
[2016-12-10] MEDS ORDERED: MORPHINE 4 MG/ML 1ML SYRINGE IV ONE (12:15)
[2016-12-10 12:38] LABS: CONTROL LINE UCG INT CTR LINE PRESENT
[2016-12-10 12:49] LABS: BASO % 0.4 % (0.0-1.0); EOS # 0.5 K/mm3 (0.0-0.50); EOS % 6.3 % (0.0-3.0); LARGE UNSTAINED CELL # 0.1 K/mm3 (0.0-0.4); LARGE UNSTAINED CELL % 1.8 % (0.0-4.0); LYMPH # 2.5 K/mm3 (1.5-4.5); LYMPH % 31.8 % (24.0-44.0); MEAN CORPUSCULAR HEMOGLOBIN 28.6 pg (27.0-33.0); MEAN CORPUSCULAR HGB CONC 32.7 g/dl (32.0-36.5); MEAN CORPUSCULAR VOLUME 87.5 fl (80.0-96.0); MONO # 0.3 K/mm3 (0.0-0.8); MONO % 3.8 % (0.0-5.0); NEUTROPHILS # 4.4 K/mm3 (1.8-7.7); NEUTROPHILS % 55.9 % (36.0-66.0); PLATELET COUNT, AUTOMATED 241 k/mm3 (150-450); RED CELL DISTRIBUTION WIDTH 12.8 % (11.5-14.5); WHITE BLOOD COUNT 7.9 K/mm3 (4.0-10.0)
[2016-12-10 12:55] LABS: ANION GAP 6 MEQ/L (8-16); BLOOD UREA NITROGEN 12 MG/DL (7-18); CALCIUM LEVEL 9.1 MG/DL (8.5-10.1); CARBON DIOXIDE LEVEL 26 MEQ/L (21-32); CHLORIDE LEVEL 106 MEQ/L (98-107); CREATININE FOR GFR 0.89 MG/DL (0.55-1.02); GLOMERULAR FILTRATION RATE > 60.0 (>60); GLUCOSE, FASTING 78 MG/DL (70-105); SODIUM LEVEL 138 MEQ/L (136-145)
--- NOTE | 2016-12-10 13:18 | REP ---
Pelvic ultrasound including transabdominal, endovaginal and Doppler ultrasound assessment: The patient had a left ovarian cyst identified on CT abdomen pelvis yesterday. Studies performed for persisting pain. The uterus is anteverted and normal size 8.7 x 4.3 x 5.7 cm. There is an IUD in the endometrial canal. The endometrium is not thickened measuring 3.5 mm. The right ovary is normal size measuring 2.1 x 1.9 x 1.8 cm. There is no right ovarian dominant mass or cyst. There is vascular flow in the right ovary with the Doppler resistive index of the intraparenchymal arteries measuring 0.57. Left ovary: There is a complex hemorrhagic cyst measuring 3.6 x 5.6 x 5.6 cm. Including the cyst the left ovary is enlarged measuring 5.9 x 3.9 x 6.1 cm. There is vascular flow in the left ovary with the Doppler resistive index of the intraparenchymal arteries measuring 0.59. There is no free fluid in the cul-de-sac. Impression: There is vascular flow in both ovaries. There is a 5.6 cm hemorrhagic left ovarian cyst. The right ovary is normal. There is an IUD within the endometrial canal. Signed by Denny Owen MD 12/10/2016 01:10 P
[2016-12-10] MEDS ORDERED: NORCOTAB PO (13:58)
[2016-12-10 14:18] VITALS: BP 108/66
== END 2016-12-10 14:36 | disposition home or self-care (01) ==
LOC: M ED 13:38
DX: N83.292 Other ovarian cyst, left side (principal); G43.909 Migraine, unspecified, not intractable, without status migrainosus; J45.909 Unspecified asthma, uncomplicated; Z79.899 Other long term (current) drug therapy
CPT/HCPCS: 36415; 76856; 80048; 81001; 84703; 85025; 87040; 87086; 96374; 96375; 99283; J1885; J2405

== ENCOUNTER 2017-01-29 11:38 | Emergency (ER) | payer OTHER ==
[~2017-01-29] VITALS: Ht 175.3 cm; Wt 86.2 kg
[~2017-01-29 11:38] MED LIST changes: +ALBU17IN INH; +CIPR500T89 PO; +NAPR500T2 PO; +NORCOTAB PO
[2017-01-29] MEDS ORDERED: IMIT50TA PO (11:56)
[2017-01-29] MEDS ORDERED: KETOROLAC 60 MG/2 ML VIAL (J1885) IM ONE (12:45)
--- NOTE | 2017-01-29 14:06 | REP ---
Clinical: Lower back and pelvic pain . Technique: Transabdominal pelvic ultrasound followed by transvaginal examination for better evaluation of the endometrium and adnexa with color Doppler evaluation of the ovaries. Findings: Bladder is collapsed. Normal anteverted uterus measures 8.9 x 3.7 x 5.2 cm, and includes IUD in satisfactory position. The endometrial complex measures 4.4 mm thickness. No discrete uterine or endometrial abnormalities are appreciated. Bilateral ovaries are normal in appearance and vascularity without evidence for torsion. Right ovary measures 2.6 x 1.5 x 2.2 cm ; R I = 0.62 . Left ovary measures 3.1 x 2.4 x 2.1 cm ; R I = 0.50 . No pelvic fluid or adnexal mass lesion . Impression: 1. normal pelvic ultrasound. 2. IUD in satisfactory position. 3. Normal bilateral ovaries without torsion or cystic changes. Signed by Virgilio Rodrigues MD 01/29/2017 01:58 P
[2017-01-29] MEDS ORDERED: IBUP600T26 PO (14:09)
[2017-01-29] MEDS ORDERED: ROBA500T PO (14:09)
[2017-01-29 14:15] VITALS: BP 128/80
== END 2017-01-29 14:19 | disposition home or self-care (01) ==
LOC: M ED 12:31
DX: S39.012A Strain of muscle, fascia and tendon of lower back, initial encounter (principal); X58.XXXA Exposure to other specified factors, initial encounter; Y92.89 Other specified places as the place of occurrence of the external cause; Y93.89 Activity, other specified; Y99.8 Other external cause status; J45.909 Unspecified asthma, uncomplicated; G43.909 Migraine, unspecified, not intractable, without status migrainosus; Z87.42 Personal history of other diseases of the female genital tract
CPT/HCPCS: 76830; 76856; 81001; 81025; 93976; 96372; 99283; J1885

== ENCOUNTER 2017-04-10 00:42 | Emergency (ER) | payer OTHER ==
[~2017-04-10 00:42] MED LIST changes: +CIPR-249 PO; -CIPR500T89 PO; +IBUP-1022 PO; +IMIT50TA PO; -NAPR500T2 PO; +NAPR500T3 PO; +ROBA500T PO
== END 2017-04-10 02:57 | disposition left against medical advice (07) ==
LOC: M ED 00:42
DX: N93.9 Abnormal uterine and vaginal bleeding, unspecified (principal); Z53.29 Procedure and treatment not carried out because of patient's decision for other reasons

== ENCOUNTER → 2017-05-17 | Outpatient (REF) | payer OTHER | LOC: M LAB REF 09:19 | PROVIDERS: ATTEND Physician Assistant | DX: N39.0 Urinary tract infection, site not specified (principal); N89.9 Noninflammatory disorder of vagina, unspecified ==

== ENCOUNTER → 2017-06-04 | Outpatient (CLI) | payer OTHER ==
[2017-06-04 10:10] LABS: HEPATITIS B SURFACE ANTIBODY NEGATIVE (POSITIVE)
== END ==
LOC: M LAB 07:59
PROVIDERS: ATTEND Internal Medicine Gastroenterology
DX: R85 Abnormal findings in specimens from digestive organs and abdominal cavity (principal)